=== PATIENT | male | born 1975 | race Two or more races ===

== ENCOUNTER 2017-07-11 18:18 | Emergency (ER) | payer SELFPAY ==
--- NOTE | 2017-07-11 19:55 | ED PDOC ---
HPI: Psych/Substance Abuse Time Seen by Provider: 07/11/17 18:28 Chief Complaint (Nursing): Alcohol Ingestion Chief Complaint (Provider): Alcohol intoxication History Per: EMS History/Exam Limitations: intoxication Additional Complaint(s): 41 year old male presents to the emergency department via EMS as Mello Garza due to alcohol intoxication. Unable to provide history. Past Medical History Reviewed: Historical Data, Nursing Documentation, Vital Signs Vital Signs: Last Vital Signs Temp 97.8 F 07/11/17 18:56 Pulse 74 07/11/17 18:56 Resp 16 07/11/17 18:56 BP 130/82 07/11/17 18:56 Pulse Ox 100 07/11/17 18:56 - Medical History PMH: No Chronic Diseases - Allergies Allergies/Adverse Reactions: Allergies Allergy/AdvReac Type Severity Reaction Status Date / Time Unobtainable Allergy Verified 07/11/17 18:19 Review of Systems Review Of Systems: ROS cannot be obtained secondary to pt's inabilty to answer questions. Physical Exam - Reviewed Nursing Documentation Reviewed: Yes Vital Signs Reviewed: Yes - Physical Exam Comments: GENERAL APPEARANCE: Patient is intoxicated, somnolent, but responsive to painful stimuli. (+) odor of alcohol SKIN: Warm, dry; (-) cyanosis HEAD: (-) scalp swelling, (-) scalp tenderness. EYES: (-) conjunctival pallor, (-) scleral icterus, (-) nystagmus. ENMT: Mucous membranes moist. Airway patent: (-) stridor. CHEST AND RESPIRATORY: (-) rales, (-) rhonchi, (-) wheezes; breath sounds equal. ABDOMEN: Soft, (-) distention NEURO AND PSYCH: Mental status as above. - ECG O2 Sat by Pulse Oximetry: 100 (RA) Pulse Ox Interpretation: Normal Medical Decision Making Medical Decision Making: Time: 1827 Initial impression: Alcohol intoxication Initial plan: --Alcohol serum --Accucheck --Pending clinical sobriety and reevaluation 2030 Alcohol serum: 490 Accucheck: 91 Patient placed on monitoring engineer. 2200 Patient sleeping comfortably in ED stretcher. Vitals stable. No acute distress noted. 2330 Patient sleeping comfortably in ED stretcher. Vitals stable. No acute distress noted. 0000 Patient now awake, alert, and oriented x3 in ED. Patient states he was brought here because he was intoxicated in public. Patient states he has no medical history and denies any trauma. Patient offers no physical complaints at this time and is requesting to go home. Patient is ambulatory in ED with a steady, unassisted gait. On re-evaluation, patient reports improvement of symptoms, denies abdominal pain , chest pain, nausea, vomiting, SOB. On exam, patient remains AAOx3, in no acute distress. On exam, neck is supple, lungs CTA, cardiac RRR, abdomen is soft and non-tender, neuro exam shows no focal findings. VSS, stable for discharge. Diagnostic results d/w the patient in great detail. Dx of alcohol intoxication d /w the patient. Based on history, exam and diagnostic results plan will be for discharge and outpatient follow up. Advised to follow up with primary care physician in 1-2 days without fail. Advised to take medication as prescribed. Return to the emergency room at any time for any new or worsening symptoms. Patient states he fully agrees with and understands discharge instructions. States that he agrees with the plan and disposition. Verbalized and repeated discharge instructions and plan. I have given the patient opportunity to ask any additional questions. Scribe Attestation: Documented by Pippa Munoz, acting as a scribe for Batool Mann PA-C. Provider Scribe Attestation: All medical record entries made by the Scribe were at my direction and personally dictated by me. I have reviewed the chart and agree that the record accurately reflects my personal performance of the history, physical exam, medical decision making, and the department course for this patient. I have also personally directed, reviewed, and agree with the discharge instructions and disposition. Disposition - Clinical Impression Clinical Impression: Alcohol ingestion, Alcohol intoxication - Patient ED Disposition Is Patient to be Admitted: No Counseled Patient/Family Regarding: Studies Performed, Diagnosis, Need For Followup, Rx Given - Disposition Referrals: [facility] [Outside] Disposition: Routine/Home Disposition Time: 00:02 Condition: FAIR Additional Instructions: FOLLOW UP WITH PMD/CLINIC NEEDED. RETURN TO ED WITH ANY NEW OR WORSENING SYMPTOMS. Instructions: Alcohol Abuse and Alcoholism (DC), Effects of Alcohol on Your Health Forms: [facility] ([place]) Print Language: ECUADOREAN - POA Present On Arrival: None
[2017-07-12 02:42] VITALS: RESP 17
[2017-07-12 02:50] VITALS: BP 136/81; PULSE 82; TEMP 98.1; O2SAT 99
== END 2017-07-12 00:31 | disposition home or self-care (01) ==
LOC: EDBD 18:18 → H.ER 18:18 → MERGE 18:18 → H.ER 07-12 00:31
DX: F10.129 Alcohol abuse with intoxication, unspecified (principal); Y90.8 Blood alcohol level of 240 mg/100 ml or more
CPT/HCPCS: 82948; 99285; G0480